=== PATIENT | male | born 1995 | race Caucasian/White ===

== ENCOUNTER 2017-09-29 06:38 | Emergency (ER) | payer OTHER, BC ==
[2017-09-29] MEDS ORDERED: CYCLOBENZAPRINE 10MG TABLET PO ONE (07:02)
[2017-09-29] MEDS ORDERED: NAPROXEN 250 MG TABLET PO ONE (07:02)
--- NOTE | 2017-09-29 07:07 | Emergency Department Record ---
History of Present Illness - General Chief Complaint: Back Pain/Injury Stated Complaint: BACK PAIN Time Seen by Provider: 09/29/17 07:02 Source: Patient, Family Mode of Arrival: Ambulatory Limitations: No limitations - History of Present Illness Initial Comments: 22 yo male presents with low back pain that started yesterday. His job requires lifting. He noted the pain with lifting at work. The pain is across the low back. No pain down the legs, no numbness or tingling, no changes in bowel or bladder function. No history of back disease. MD Complaint: Back pain Onset/Timin -: Hour(s) Similar Symptoms Previously: No Place: Work Radiation: None Severity: Mild Severity scale (1-10): 8 Consistency: Getting worse Improves With: None Worsens With: None Context: Bending, Turning/twisting Associated Symptoms: Denies other symptoms Treatment Prior to Arrival Comment:: took excedrin yesterday - Related Data Previous Rx's Medication Instructions Recorded Cyclobenzaprine HCl [Flexeril] 10 mg PO TID #15 tablet 09/29/17 Naproxen [Naprosyn] 500 mg PO BID #20 tablet. 09/29/17 Allergies Allergy/AdvReac Type Severity Reaction Status Date / Time amoxicillin Allergy rash Verified 09/29/17 06:47 codeine Allergy BEHAVIORAL Verified 09/29/17 06:48 CHANGES hydrocodone bitartrate Allergy vomiting Verified 09/29/17 06:47 [From [place]] Travel Screening - Travel/Exposure Within Last 30 Days Have you traveled within the last 30 days?: No - Travel/Exposure Within Last Year Have you traveled outside the [place] in the last year?: No - Additonal Travel Details Have you been exposed to anyone with a communicable illness?: No - Travel Symptoms Symptom Screening: None Review of Systems Constitutional: Denies: Chills, Fever, Weakness Eyes: Denies: Eye discharge ENT: Denies: Congestion, Throat pain Respiratory: Denies: Cough Cardiovascular: Denies: Chest pain, Syncope Endocrine: Denies: Fatigue Gastrointestinal: Denies: Abdominal pain, Diarrhea, Nausea, Vomiting Genitourinary: Denies: Dysuria, Frequency, Hematuria Musculoskeletal: Reports: As per HPI, Back pain, Myalgia. Denies: Arthralgia Skin: Denies: Bruising, Change in color, Rash Neurological: Denies: Headache, Numbness, Weakness Psychiatric: Denies: Anxiety Hematological/Lymphatic: Denies: Blood Clots, Easy bleeding, Easy bruising, Swollen glands Past Medical History - SOCIAL HISTORY Smoking Status: Never smoker Alcohol Use: None Drug Use: None - RESPIRATORY Hx Respiratory Disorders: No - CARDIOVASCULAR Hx Cardio Disorders: No - NEURO Hx Neuro Disorders: No - GI Hx GI Disorders: No - Hx Genitourinary Disorders: No - ENDOCRINE Hx Endocrine Disorders: No - MUSCULOSKELETAL Hx Musculoskeletal Disorders: Yes Comment:: scoliosis - PSYCH Hx Psych Problems: No - HEMATOLOGY/ONCOLOGY Hx Hematology/Oncology Disorders: No Family Medical History Any Significant Family History?: No Physical Exam - General General Appearance: Alert, Oriented x3, Cooperative, No acute distress Limitations: No limitations - Head Head exam: Normal inspection - Eye Eye exam: Normal appearance, PERRL. negative: Conjunctival injection, Scleral icterus - ENT ENT exam: Normal exam, Mucous membranes moist Ear exam: Normal external inspection Nasal Exam: Normal inspection Mouth exam: Normal external inspection - Neck Neck exam: Normal inspection, Full ROM. negative: Tenderness - GI/Abdominal GI/Abdominal exam: Soft. negative: Tenderness - Rectal Rectal exam: Deferred - exam: Deferred - Extremities Extremities exam: Normal inspection, Full ROM. negative: Calf tenderness, Joint swelling, Normal capillary refill, Pedal edema, Tenderness - Back Back exam: Reports: Normal inspection, Full ROM, Muscle spasm, Paraspinal tenderness. Denies: CVA tenderness (R), CVA tenderness (L), Rash noted, Vertebral tenderness - Neurological Neurological exam: Alert, Normal gait, Oriented X3, Reflexes normal. negative: Abnormal gait, Altered, Motor sensory deficit - Psychiatric Psychiatric exam: Normal affect, Normal mood - Skin Skin exam: Dry, Intact, Normal color, Warm Course Vital Signs 09/29/17 06:42 Temperature 97.5 F L Pulse Rate 64 Respiratory 20 Rate Blood Pressure 137/79 Pulse Ox 100 - Reevaluation(s) Reevaluation #1: The examination is consistent with musculoskeletal in origin No neurologic signs or symptoms 09/29/17 07:05 Disposition Disposition: Discharge Clinical Impression: Lumbar strain Qualifiers: Encounter type: initial encounter Qualified Code(s): S39.012A - Strain of muscle, fascia and tendon of lower back, initial encounter Disposition: Home, Self-Care Condition: (1) Good Instructions: Low Back Strain (ED) Additional Instructions: Call your doctor for close follow up Return if worse, weakness, and numbness or tingling Off work today Prescriptions: Cyclobenzaprine HCl [Flexeril] 10 mg PO TID #15 tablet Naproxen [Naprosyn] 500 mg PO BID #20 tablet. Time of Disposition: 07:06 Quality - Quality Measures Quality Measures: N/A - Blood Pressure Screening Does Patient Have Any of the Following: No Blood Pressure Classification: Pre-Hypertensive BP Reading Systolic Measurement: 137 Diastolic Measurement: 79 Screening for High Blood Pressure: < Pre-Hypertensive BP, F/U Documented > [ G8950] Pre-Hypertensive Follow-up Interventions: Referral to alternative/primary care provider.
== END 2017-09-29 07:13 | disposition home or self-care (01) ==
LOC: ER 06:38
DX: S39.012A Strain of muscle, fascia and tendon of lower back, initial encounter (principal); X50.0XXA Overexertion from strenuous movement or load, initial encounter; Y99.0 Civilian activity done for income or pay
CPT/HCPCS: 99283

== ENCOUNTER 2017-12-20 18:46 | Emergency (ER) | payer OTHER, BC ==
--- NOTE | 2017-12-20 19:12 | Emergency Department Record ---
History of Present Illness - General Stated complaint: BOODY NOSE Time Seen by Provider: 12/20/17 18:58 Source: Patient Mode of Arrival: Ambulatory Limitations: No limitations - History of Present Illness Initial comments: 22 yo male presents to ED for evaluation of intermittent nose bleeding for the past 48 hours (3 times). Patient reports spontaneous bleeding that started Tuesday, denies trauma to the nose or a history of bleeding disorders/ anticoagulation use, and has been able to stop the bleeding each time with direct pressure. Patient reports that his bleeding has currently stopped as well. Patient denies health problems at his baseline. MD complaint: Epistaxis Onset/Timin -: Hour(s) Location: Nose Severity: Moderate Consistency: Intermittent Improves with: Pressure Worsens with: Other (blowing of the nose) - Related Data Home Medications Medication Instructions Recorded Confirmed Last Taken No Home Med [NO HOME MEDS] 12/20/17 12/20/17 Unknown Allergies Allergy/AdvReac Type Severity Reaction Status Date / Time amoxicillin Allergy rash Unverified 11/17/17 17:56 codeine Allergy BEHAVIORAL Unverified 11/17/17 17:56 CHANGES hydrocodone bitartrate Allergy vomiting Unverified 11/17/17 17:56 [From [place]] Review of Systems Constitutional: Denies: Chills, Fever, Malaise, Night sweats Eyes: Denies: Eye discharge, Eye pain ENT: Reports: Epistaxis. Denies: Congestion, Ear pain Respiratory: Denies: Cough, Dyspnea Cardiovascular: Denies: Chest pain, Dyspnea on exertion Endocrine: Denies: Fatigue, Heat or cold intolerance Gastrointestinal: Denies: Abdominal pain, Constipation, Vomiting Genitourinary: Denies: Incontinence, Retention Skin: Denies: Bruising, Change in color Neurological: Denies: Abnormal gait, Confusion, Headache Psychiatric: Denies: Anxiety Hematological/Lymphatic: Denies: Anemia, Blood Clots Past Medical History - SOCIAL HISTORY Smoking Status: Never smoker Drug Use: None - RESPIRATORY Hx Respiratory Disorders: No - CARDIOVASCULAR Hx Cardio Disorders: No - NEURO Hx Neuro Disorders: No - GI Hx GI Disorders: No - Hx Genitourinary Disorders: No - ENDOCRINE Hx Endocrine Disorders: No - MUSCULOSKELETAL Hx Musculoskeletal Disorders: Yes Comment:: scoliosis - PSYCH Hx Psych Problems: No - HEMATOLOGY/ONCOLOGY Hx Hematology/Oncology Disorders: No Physical Exam - General General Appearance: Alert, Oriented x3, Cooperative, Mild distress Limitations: No limitations - Head Head exam: Atraumatic, Normocephalic, Normal inspection Head exam detail: negative: Abrasion, Contusion, Smith's sign, General tenderness, Hematoma, Laceration - Eye Eye exam: Normal appearance. negative: Conjunctival injection, Periorbital swelling, Periorbital tenderness, Scleral icterus - ENT Ear exam: negative: Auricular hematoma, Auricular trauma Nasal Exam: Dried blood, Other (No active bleeding is present on examination, no obvious source for cauterization is present either on examination.). negative: Active bleeding, Discharge, Foreign body, Sinus tenderness Mouth exam: negative: Drooling, Laceration, Muffled voice, Tongue elevation - Neck Neck exam: Normal inspection. negative: Meningismus, Tenderness - Respiratory Respiratory exam: Normal lung sounds bilaterally. negative: Respiratory distress, Rhonchi, Stridor, Wheezes - Cardiovascular Cardiovascular Exam: Regular rate, Normal rhythm, Normal heart sounds - GI/Abdominal GI/Abdominal exam: Soft. negative: Rebound, Rigid, Tenderness - Rectal Rectal exam: Deferred - exam: Deferred - Extremities Extremities exam: Normal inspection. negative: Pedal edema, Tenderness - Back Back exam: Denies: CVA tenderness (R), CVA tenderness (L) - Neurological Neurological exam: Alert, Normal gait, Oriented X3 - Psychiatric Psychiatric exam: Normal affect, Normal mood - Skin Skin exam: Normal color. negative: Abrasion Type of lesion: negative: abrasion Course - Reevaluation(s) Reevaluation #1: 12/20/17 19:11 NO currently bleeding is present on examination, and no source is identified for cauterization. Discussed packing placement to prevent re-bleeding vs. symptomatic compression to stop bleeding with nasal clamp, patient would like to defer packing at this time. Will re-examine for re-bleeding symptoms in 30 minutes. Reevaluation #2: 12/20/17 19:38 Patient was reassessed, denies recurrent bleeding symptoms, and appears stable for discharge with nasal clip for recurrent bleeding symptoms. Disposition Disposition: Discharge Clinical Impression: Epistaxis Disposition: Home, Self-Care Condition: (2) Stable Instructions: Nosebleed (ED) Additional Instructions: Return to ED if your symptoms worsen or if you have any concerns. Nose clamp as needed for re-bleeding symptoms. Follow-up with your family doctor in 3-5 days as directed. Time of Disposition: 19:38 Quality - Quality Measures Quality Measures: N/A - Blood Pressure Screening Does Patient Have Any of the Following: No Blood Pressure Classification: Pre-Hypertensive BP Reading Systolic Measurement: 121 Diastolic Measurement: 71 Screening for High Blood Pressure: < Pre-Hypertensive BP, F/U Documented > [ G8950] Pre-Hypertensive Follow-up Interventions: Referral to alternative/primary care provider.
== END 2017-12-20 19:56 | disposition home or self-care (01) ==
LOC: ER 18:46
DX: R04.0 Epistaxis (principal)
CPT/HCPCS: 99283